=== PATIENT | female | born 1935 | race Caucasian/White ===

== ENCOUNTER → 2016-07-20 | Outpatient (CLI) | payer MEDICARE, BC | END | disposition home or self-care (01) | LOC: RAD.S 10:40 | DX: Z12.31 Encounter for screening mammogram for malignant neoplasm of breast (principal); N63 Unspecified lump in breast; R92.1 Mammographic calcification found on diagnostic imaging of breast; N60.02 Solitary cyst of left breast ==

== ENCOUNTER 2016-07-31 19:13 | Emergency (ER) | payer MEDICARE, BC ==
--- NOTE | 2016-07-31 23:48 | ER ---
ADMIT: 07/31/2016 RM/LOC: ER [facility] MR#: [id number] [facility] [address], [place] [id number] [address] [place] [address] Emergency Room Report SEX: F AGE: 81 : 1935 DATE: 07/31/2016 TIME: 1913 hours. Please refer to my T-sheet for complete H and P. HISTORY OF PRESENT ILLNESS: Briefly, the patient is an 81-year-old who comes with right leg pain. It started today. No trauma. She was doing physical therapy today, and it was hurting a little before then and then she says it comes and goes, lasts less than 10 second, kind of shoots down her right side of her leg. She was concerned she could have a blood clot. She has traveled recently. PHYSICAL EXAMINATION: VITAL SIGNS: Here all stable. HEENT: Grossly normal. LUNGS: Clear. HEART: Regular. EXTREMITIES: Her right lower extremity and left lower very similar. There is no erythema and no redness. She is tender on the lateral aspect of her right lower extremity. NEUROVASCULAR: Intact distally, and it comes and goes, only lasts a few seconds. EMERGENCY ROOM COURSE: Doppler ultrasound was negative for DVT. I had a long discussion. She was ready for discharge. ASSESSMENT: Right leg pain. Etiology is uncertain. Very stable at this time. PLAN: Rest, ice, elevate. Motrin or Tylenol. Follow up with [facility] this week to recheck. Bandar Felder MD/ luis JOB #: [id number] CC: Bandar Felder MD, Attending Physician Pippa Donovan MD, Family Physician
== END 2016-07-31 20:28 | disposition home or self-care (01) ==
LOC: ER 19:13
DX: M79.661 Pain in right lower leg (principal); Z90.49 Acquired absence of other specified parts of digestive tract; Z85.828 Personal history of other malignant neoplasm of skin

== ENCOUNTER → 2016-07-31 | Outpatient (CLI) | payer MEDICARE, BC | END | disposition home or self-care (01) | LOC: RAD.S 07-24 16:08 | DX: R92.8 Other abnormal and inconclusive findings on diagnostic imaging of breast (principal); N63 Unspecified lump in breast ==